=== PATIENT | male | born 1980 | race Caucasian/White ===

== ENCOUNTER 2017-03-04 16:55 | Emergency (ER) | payer OTHER ==
[~2017-03-04] VITALS: Ht 185.4 cm; Wt 79.4 kg
[2017-03-04 16:59] VITALS: BP 149/94
[2017-03-04] MEDS ORDERED: EPIPEN0.3 MG/0.1 IM (17:08)
== END 2017-03-04 17:29 | disposition home or self-care (01) ==
LOC: ER 16:55
DX: S01.111A Laceration without foreign body of right eyelid and periocular area, initial encounter (principal); S09.90XA Unspecified injury of head, initial encounter; F17.210 Nicotine dependence, cigarettes, uncomplicated; Z88.6 Allergy status to analgesic agent; W22.8XXA Striking against or struck by other objects, initial encounter; Y93.89 Activity, other specified; Y92.89 Other specified places as the place of occurrence of the external cause; Y99.9 Unspecified external cause status

== ENCOUNTER 2019-05-09 12:56 | Emergency (ER) | payer OTHER ==
[~2019-05-09] VITALS: Ht 185.4 cm; Wt 91.6 kg
[~2019-05-09 12:56] MED LIST: EPIPEN0.3 MG/0.1 IM
[2019-05-09 12:57] VITALS: BP 130/87
[2019-05-09] MEDS ORDERED: ZOLOFT50 MG PO (12:59)
[2019-05-09] MEDS ORDERED: WELLBUTRIN 75 M75 M1 PO (13:00)
[2019-05-09] MEDS ORDERED: REMERON15 MG PO (13:00)
== END 2019-05-09 13:20 | disposition home or self-care (01) ==
LOC: ER 12:56
DX: S61.217A Laceration without foreign body of left little finger without damage to nail, initial encounter (principal); F17.210 Nicotine dependence, cigarettes, uncomplicated; Z88.6 Allergy status to analgesic agent; Z91.030 Bee allergy status; W23.0XXA Caught, crushed, jammed, or pinched between moving objects, initial encounter; Y93.89 Activity, other specified; Y92.89 Other specified places as the place of occurrence of the external cause; Y99.8 Other external cause status

== ENCOUNTER 2019-05-13 06:10 | Emergency (ER) | payer OTHER ==
[~2019-05-13] VITALS: Ht 188 cm; Wt 91.6 kg
[~2019-05-13 06:10] MED LIST changes: +REMERON15 MG PO; +WELLBUTRIN 75 M75 M1 PO; +ZOLOFT50 MG PO
[2019-05-13 06:37] LABS: ABSOLUTE NEUTROPHILS 2.4 thou/uL (1.4-8.2); BASOPHILS 1.1 % (0.0-2.0); EOSINOPHILS 3.2 % (0.0-3.0); HEMATOCRIT 45.1 % (42.0-52.0); HEMOGLOBIN 15.7 gm/dL (14.0-18.0); MCHC 34.9 g/dL (28.0-37.0); MCV 91.6 fL (80.0-100.0); MONOCYTES 11.5 % (1.0-8.0); PLATELET COUNT 200 thou/uL (150-400); POLYS 40.2 % (36.0-66.0); RBC 4.92 mil/uL (4.50-6.00); RDW 13.6 % (10.5-14.5)
[2019-05-13 06:45] LABS: ANION GAP 9 mmol/L (7-16); BUN 14 mg/dL (7-18); CALCIUM 8.3 mg/dL (8.5-10.1); CHLORIDE 104 mmol/L (98-107); CO2 26 mmol/L (21-32); CREATININE 1.5 mg/dL (0.7-1.3); GLUCOSE 145 mg/dL (74-106); POTASSIUM 3.7 mmol/L (3.5-5.1); SODIUM 139 mmol/L (136-145)
[2019-05-13 06:54] LABS: TROPONIN-I <0.06 ng/mL (<0.06)
--- NOTE | 2019-05-13 07:59 | EKG ---
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 : 1980 Requested By: Xin Williamson Order Number: [id number] MD: Boris Aguero Measurements Intervals [place] Rate: 79 P: 69 LA: 117 QRS: 48 QRSD: 101 T: 47 QT: 377 QTc: 433 Interpretive Statements Sinus rhythm Borderline short LA interval Nonspecific ST and T wave abnormality No previous ECG available for comparison Electronically Signed On 05-13-2019 7:59:17 CDT by Boris Aguero [email or web address] <ELECTRONICALLY SIGNED> By: Boris Aguero MD, [facility] 05/13/19 0759 0614 0614 Boris Aguero MD, [facility] /EPI
[2019-05-13 10:59] VITALS: BP 128/79
--- NOTE | 2019-05-13 11:08 | EXE ---
[facility] [address] STRESS ECHOCARDIOGRAM Name: XIN LYNN Room #: REG ARNOLDO Savage#: [id number] Admission: 05/13/19 Attend Phys: Discharge: Date of : 76 Date of Service: 05/13/19 1108 Report #: [id number] THIS REPORT FOR: //name// APPROVED REPORT Study performed: 05/13/2019 09:35:24 Exam: Stress Echocardiogram Indication: Chest pain Patient Location: ER Stress Nurse: Iesha Orr RN Room #: 10 Status: routine Ht: 6 ft 0 in HR: 65 bpm BP: 110/82 mmHg Rhythm: NSR Medical History Medical History: HTN Cardiac Risk Factors: HTN, FHX of CAD Exercise History: Physically active Procedure The patient underwent an Exercise Stress Test using the Jovanny Protocol. Blood pressure, heart rate, and EKG were monitored. An Echocardiogram was performed by gastrointestinal technician in four stages in quad fashion. At peak stress, four selected images were obtained and placed side by side with resting images for comparison. Stress Test Details Stress Test: Exercise stress testing was performed using a Jovanny protocol. HR Resting HR: 65 bpm Max Heart Rate (APMHR): 180 bpm Max HR Achieved: 179 bpm Target HR (85% APMHR): 153 bpm % of APMHR: 99 Recovery HR: 90 bpm HR response to stress: Normal HR response to stress BP Resting BP: 110/82 mmHg Max BP: 166/64 mmHg Recovery BP: 128/74 mmHg BP response to stress: Normal blood pressure response to [facility] [address] [place] [address] STRESS ECHOCARDIOGRAM Name: XIN LYNN Room #: REG Janette#: [id number] Admission: 05/13/19 Attend Phys: Discharge: Date of : 76 Date of Service: 05/13/19 1108 Report #: [id number] stress. ECG Resting ECG: Sinus Rhythm Stress ECG: Sinus Tachycardia Recovery ECG: Sinus Rhythm Clinical Reason for Termination: Maximal effort Exercise duration: 11 min 30 sec Highest Stage Achieved: Stage 4: 4.2 mph at 16% grade. Exercise capacity: 13.7 METs Overall Exercise Capacity for Age: Good Stress ECG Conclusion 1. Subjectively negative for ischemia 2. Electrocardiographically negative for ischemia with J-point depression with rapidly upsloping ST segments did not peripheral criteria 3. Satisfactory functional capacity Pre-Stress Echo The resting Echocardiogram showed normal left ventricular contractility with an estimated Ejection Fraction of about >55%. The resting echocardiogram demonstrated normal wall motion in all wall segments. Post-Stress Echo The stress Echocardiogram showed normal left ventricular contractility with an estimated Ejection Fraction of about 65-70%. Compared to rest, there were no stress-induced wall motion abnormalities. Conclusion Clinical Response: Non-ischemic Exercise Capacity: Superior Stress ECG Response: Non-ischemic Stress Echo Images: Non-ischemic 1. Low risk study No prior study available for comparison. Other Information Study Quality: Good [facility] [address] [place] [address] STRESS ECHOCARDIOGRAM Name: LYNNXIN Room #: REG German.#: [id number] Admission: 05/13/19 Attend Phys: Discharge: Date of : 76 Date of Service: 05/13/19 1108 Report #: [id number] <Conclusion> 1. Low risk study <ELECTRONICALLY SIGNED> By: Last Anaya MD 05/13/19 1108 1108 Last Anaya MD /INF
== END 2019-05-13 11:11 | disposition home or self-care (01) ==
LOC: ER 06:10
PROVIDERS: Emergency Medicine
DX: R07.89 Other chest pain (principal); F17.210 Nicotine dependence, cigarettes, uncomplicated; Z91.030 Bee allergy status; Z82.49 Family history of ischemic heart disease and other diseases of the circulatory system

== ENCOUNTER → 2020-04-25 | Outpatient (CLI) | payer OTHER ==
[2020-04-25 14:29] LABS: HEMATOCRIT 49.6 % (42.0-52.0); HEMOGLOBIN 17.4 gm/dL (14.0-18.0); MCH 32.6 pg (26.0-34.0); MCV 93.2 fL (80.0-100.0); PLATELET COUNT 233 thou/uL (150-400); RBC 5.32 mil/uL (4.50-6.00); RDW 13.5 % (10.5-14.5)
[2020-04-25 15:06] LABS: ALBUMIN 4.1 g/dL (3.4-5.0); ANION GAP 6 mmol/L (7-16); BUN 10 mg/dL (7-18); CALCIUM 8.8 mg/dL (8.5-10.1); CHLORIDE 102 mmol/L (98-107); CHOLESTEROL 189 mg/dL (<200); CO2 30 mmol/L (21-32); CREATININE 1.3 mg/dL (0.7-1.3); GLUCOSE 91 mg/dL (74-106); HDL CHOLESTEROL 39 mg/dL (>40); LDL CHOLESTEROL 128 mg/dL (<100); POTASSIUM 4.2 mmol/L (3.5-5.1); SGOT 21 U/L (15-37); SGPT 22 U/L (30-65); SODIUM 138 mmol/L (136-145); TC:HDL 4.8 Ratio (Not establshd); TOTAL BILIRUBIN 0.8 mg/dL (0.2-1.0); TOTAL PROTEIN 7.4 g/dL (6.4-8.2); TRIGLYCERIDE 112 mg/dL (<150); VLDL 22 mg/dL (<40)
[2020-04-25 15:16] LABS: ABSOLUTE NEUTROPHILS 3.8 thou/uL (1.4-8.2); PLATELET ESTIMATE NORMAL
[2020-04-25 23:06] LABS: PSA 0.5 ng/mL (0.0-4.0)
[2020-04-26 01:06] LABS: GLYCOHEMOGLOBIN (HGB A1C) 5.1 % (4.8-5.6)
[2020-04-26 09:07] LABS: HIV ANTIBODY Non Reactive (Non Reactive)
[2020-04-26 18:06] LABS: HSV 2 IgG <0.91 index (0.00-0.90)
[2020-04-26 21:06] LABS: HAV IgM AB (ANTI-HAV IgM) Negative (Negative); HEPATITIS B SURFACE AG Negative (Negative); HEPATITIS C VIRUS AB <0.1 (0.0-0.9)
== END ==
LOC: LABMALL 13:47
PROVIDERS: ATTEND Family Medicine
DX: Z20.2 Contact with and (suspected) exposure to infections with a predominantly sexual mode of transmission (principal); W46.0XXA Contact with hypodermic needle, initial encounter

== ENCOUNTER 2020-05-08 16:37 | Emergency (ER) | payer OTHER ==
[~2020-05-08] VITALS: Ht 185.4 cm; Wt 93.0 kg
[2020-05-08 16:43] VITALS: BP 133/93
[2020-05-08] MEDS ORDERED: CIPRO500 M1 PO (17:24)
[2020-05-08] MEDS ORDERED: NORCO 5-325 TA1 EAC2 PO (17:36)
== END 2020-05-08 17:38 | disposition home or self-care (01) ==
LOC: ER 16:37
DX: S61.011A Laceration without foreign body of right thumb without damage to nail, initial encounter (principal); F17.210 Nicotine dependence, cigarettes, uncomplicated; Z79.899 Other long term (current) drug therapy; Z91.030 Bee allergy status; W26.8XXA Contact with other sharp object(s), not elsewhere classified, initial encounter; Y93.89 Activity, other specified; Y92.89 Other specified places as the place of occurrence of the external cause; Y99.8 Other external cause status

== ENCOUNTER 2021-04-25 01:01 | Emergency (ER) | payer OTHER ==
[~2021-04-25] VITALS: Ht 185.4 cm; Wt 93.0 kg
[~2021-04-25 01:01] MED LIST changes: +CIPRO500 M1 PO; +NORCO 5-325 TA1 EAC2 PO
[2021-04-25 04:43] VITALS: BP 129/88
== END 2021-04-25 04:44 | disposition home or self-care (01) ==
LOC: ER 01:01
DX: S91.312A Laceration without foreign body, left foot, initial encounter (principal); F17.210 Nicotine dependence, cigarettes, uncomplicated; Z79.891 Long term (current) use of opiate analgesic; Z79.899 Other long term (current) drug therapy; Z91.030 Bee allergy status; W22.8XXA Striking against or struck by other objects, initial encounter; Y93.89 Activity, other specified; Y92.89 Other specified places as the place of occurrence of the external cause; Y99.8 Other external cause status

== ENCOUNTER → 2021-08-07 | Outpatient (CLI) | payer OTHER ==
[2021-08-07 14:24] LABS: ABSOLUTE NEUTROPHILS 3.8 thou/uL (1.4-8.2); BASOPHILS 0.8 % (0.0-2.0); EOSINOPHILS 1.3 % (0.0-3.0); HEMATOCRIT 44.9 % (42.0-52.0); HEMOGLOBIN 15.4 gm/dL (14.0-18.0); LYMPHOCYTES 32.4 % (24.0-44.0); MCHC 34.2 g/dL (28.0-37.0); MCV 93.4 fL (80.0-100.0); MONOCYTES 10.1 % (1.0-8.0); PLATELET COUNT 227 thou/uL (150-400); POLYS 55.4 % (36.0-66.0); WBC 6.9 thou/uL (4.0-11.0)
[2021-08-07 14:40] LABS: ALBUMIN 3.8 g/dL (3.4-5.0); ANION GAP 7 mmol/L (7-16); BUN 13 mg/dL (7-18); CALCIUM 8.8 mg/dL (8.5-10.1); CHLORIDE 104 mmol/L (98-107); CO2 32 mmol/L (21-32); CREATININE 1.2 mg/dL (0.7-1.3); GLUCOSE 84 mg/dL (74-106); POTASSIUM 4.7 mmol/L (3.5-5.1); SGOT 19 U/L (15-37); SGPT 23 U/L (16-63); SODIUM 143 mmol/L (136-145); TOTAL BILIRUBIN 0.6 mg/dL (0.2-1.0); TOTAL PROTEIN 7.1 g/dL (6.4-8.2)
[2021-08-07 15:36] LABS: CHOLESTEROL 190 mg/dL (<200); HDL CHOLESTEROL 34 mg/dL (>40); LDL CHOLESTEROL 102 mg/dL (<100); TC:HDL 5.6 Ratio (Not establshd); TRIGLYCERIDE 273 mg/dL (<150); VLDL 55 mg/dL (<40)
[2021-08-08 03:06] LABS: GLYCOHEMOGLOBIN (HGB A1C) 5.3 % (4.8-5.6)
== END ==
LOC: LAB 14:00
PROVIDERS: ATTEND Family Medicine
DX: Z00.00 Encounter for general adult medical examination without abnormal findings (principal)

== ENCOUNTER 2021-08-24 15:04 | Emergency (ER) | payer OTHER ==
[~2021-08-24] VITALS: Ht 185.4 cm; Wt 93.0 kg
[2021-08-24 15:54] VITALS: BP 122/83
--- NOTE | 2021-08-25 07:06 | EKG ---
[place] [address] [facility] [place] [address] ELECTROCARDIOGRAM REPORT Name: XIN LYNN [facility] #: [facility]P [facility] [id number] Admission: 08/24/21 Attend Phys: Discharge: 08/24/21 Date of : 76 Report #: [id number] [facility] ED Test Date: 2021-08-24 Test Time: 15:12:36 Pat Name: XIN LYNN Department: Room: Gender: Manager Intelligence: SUZANNA : 1980 Requested By: Cecily Adame Order Number: [id number] MD: Anthony Hernandez Measurements Intervals [place] Rate: 73 P: 70 [place]: 125 QRS: 36 QRSD: 104 T: 45 QT: 406 QTc: 448 Interpretive Statements Sinus rhythm Baseline wander in lead(s) II,III,aVF Compared to ECG 05/13/2019 06:14:37 ST (T wave) deviation no longer present Electronically Signed On 08-25-2021 7:06:20 SASH FINISHER by Anthony Hernandez [email or web address] <ELECTRONICALLY SIGNED> By: Anthony Hernandez MD, [facility] 08/25/21 0706 11 11 Anthony Hernandez MD, FACC /EPI
== END 2021-08-24 15:55 | disposition home or self-care (01) ==
LOC: ER 15:04
DX: E16.2 Hypoglycemia, unspecified (principal); F41.9 Anxiety disorder, unspecified; F32.9 Major depressive disorder, single episode, unspecified; F17.210 Nicotine dependence, cigarettes, uncomplicated; Z79.891 Long term (current) use of opiate analgesic; Z79.899 Other long term (current) drug therapy; Z91.030 Bee allergy status

== ENCOUNTER → 2021-09-04 | Outpatient (CLI) | payer OTHER ==
[2021-09-05 03:06] LABS: GLYCOHEMOGLOBIN (HGB A1C) 5.4 % (4.8-5.6)
== END ==
LOC: LAB 12:46
PROVIDERS: ATTEND Family Medicine
DX: E16.2 Hypoglycemia, unspecified (principal)